=== PATIENT | male | born 1965 | race Caucasian/White ===

== ENCOUNTER 2021-02-03 18:29 | Observation (INO) ==
[2021-02-03] MEDS ORDERED: ONDANSETRON INJ 2 MG/ML 2 ML VIAL IV STA (18:48)
[2021-02-03] MEDS ORDERED: MoRPHine SULFATE 4 MG/ML 1 ML CARP\\VIAL IV STA ×2 (18:48→21:59)
--- NOTE | 2021-02-03 18:52 | Emergency Department Note ---
History of Present Illness General Chief complaint: Back Injury/Pain Stated complaint: Back Pain down R leg Time Seen by Provider: 02/03/21 18:37 Source: patient and EMS Mode of arrival: EMS Limitations: no limitations History of Present Illness This patient comes in with back pain it starts in the right lower back and radiates down his leg. He has had this for a week and got worse over the last day. It has been progressively worse he has had it several times in the past. No injury although he has been doing a lot of working and moving and thinks he could have aggravated. He feels tingling in the right leg today but no numbness is mostly just pain the pain is worse with moving. No change in bowel or bladder function. No fever or chills. He said the Covid vaccine x2 with Materna. No chest pain or shortness of breath. No abdominal pain. Home Medications Medication Instructions Recorded Confirmed Type triamcinolone acetonide 0.1 % 1 applic TOPICAL UD PRN 01/24/18 02/03/21 History topical cream azelastine 137 mcg (0.1 %) nasal 2 spray INTNAS BID #30 ml 11/07/20 02/03/21 Rx spray aerosol buspirone 5 mg tablet 5 mg PO BID PRN #60 tab 01/24/21 02/03/21 Rx diclofenac sodium 75 mg 75 mg PO BID #60 tab 02/03/21 02/03/21 Rx tablet,delayed release naproxen sodium 220 mg tablet 440 mg PO BID PRN 02/03/21 02/03/21 History (Aleve) oxycodone 5 mg capsule 5 mg PO Q6H PRN #20 cap 02/03/21 Rx prednisone 50 mg tablet 50 mg PO DAILY 4 Days #4 tab 02/03/21 Rx Allergies Allergy/AdvReac Type Severity Reaction Status Date / Time No Known Drug Allergies Allergy NKDA Verified 02/03/21 20:22 Past Med/Surg History Medical History Foreign body of right eye Surgical History H/O colonoscopy (02/20/19) hyperplastic polyp - repeat in 10 years , Dr. Hansen History of knee surgery Family History Aunt Breast cancer Diabetes Grandfather Leukemia Grandfather Alzheimer disease Denies family history of Ovarian cancer Prostate cancer Clotting disorder Myocardial infarction Colorectal cancer Social History Smoking Status: Never smoker Tobacco Type: Smokeless Tobacco (Dip or Chew) Age Started Using Tobacco: 17; Age Quit Using Tobacco: 29; Number of Years Since Quit: 13; Second Hand Exposure: Yes (Rarely); Hx Alcohol Use: No Hx Substance Use: No Communication Ability: Effective Visual Impairment: No Limitations Hearing Ability: Normal marital status: Current Living Situation: Family Current Living Situation Comment: lives with son current occupational status: employed 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 [employer] Feels Safe at Home: Yes Childhood Exposure to Second-Hand Smoke: No caffeine: Yes (1 cup of coffee a day) Dental Care, Regularly: Yes Physical Activity Frequency: Does not Exercise Seatbelt Use: always Sunscreen Use: No Assistive Devices: Glasses Review of Systems A total of 10 systems reviewed and were otherwise negative Physical Exam Vital Signs Vital Signs - 24 hr 02/03/21 18:56 02/03/21 21:26 Temperature 36.5 C Temperature Source Oral Pulse Rate 62 Pulse Rate [Apical] 55 L Pulse Rhythm Regular Pulse Strength Normal Respiratory Rate 20 16 Respiratory Effort / Characteristics Non-Labored Spontaneous Respiratory Depth Normal Respiratory Pattern Regular Blood Pressure 125/100 Blood Pressure Mean 108 Blood Pressure Position Lying Pulse Oximetry 98 96 Oxygen Delivery Method Room Air Sepsis Recent Fever Within 48 Hours No Sepsis New/Unexplained Change in Mental Status No Sepsis Action Taken by Nursing No Action Required General: Well developed well nourished middle-age male who is laying prone in the bed complaining of pain in his right butt cheek going down the leg it is worse with movement. He is in no acute distress, breathing comfortably on room air. Normal speech HEENT: Normal cephalic atraumatic. Pupils are equal round and reactive to light. Extraocular movements are intact. Oropharynx is pink with moist mucous membranes. No swelling of the mouth lips or tongue. Neck: Supple with a midline trachea. No meningeal signs or stiffness, no JVD or bruits. No Stridor. Chest: Clear to auscultation bilaterally. No wheezes or rhonchi. No increased work of breathing. Heart: Regular rate and rhythm without murmurs or gallops. Abdomen: Soft nontender, nondistended without rebound guarding or rigidity. Extremities: No cyanosis clubbing or edema. No calf tenderness or assymetry Spine/Back. Non tender to palpation. He is tender in the right buttocks towards the SI joint. It hurts when I raise his leg Skin: Good turgor without rashes. Neurologic exam: Cranial nerves two through 12 are intact. Motor and sensation are intact and symmetrical throughout. Course Administered Medications Discontinued Medications Hydromorphone HCl (Hydromorphone Inj 1 Mg/Ml Syringe) 1 mg IV NOW STA Stop: 02/03/21 22:55 Last Admin: 02/03/21 23:03 Dose: 1 mg Documented by: [id number] Ketorolac Tromethamine (Ketorolac Tromethamine 15 Mg/Ml Vial) 10 mg IV NOW ONE Stop: 02/03/21 20:26 Last Admin: 02/03/21 20:31 Dose: 10 mg Documented by: [id number] Ketorolac Tromethamine (Ketorolac Tromethamine 15 Mg/Ml Vial) 10 mg IV NOW ONE Stop: 02/03/21 22:55 Last Admin: 02/03/21 23:03 Dose: 10 mg Documented by: [id number] Methylprednisolone (Methylprednisolone 125 Mg/2 Ml Vial) 125 mg IV NOW STA Stop: 02/03/21 20:26 Last Admin: 02/03/21 20:31 Dose: 125 mg Documented by: [id number] Morphine Sulfate (Morphine Sulfate 4 Mg/Ml 1 Ml Carp\Vial) 4 mg IV NOW STA Stop: 02/03/21 18:49 Last Admin: 02/03/21 19:06 Dose: 4 mg Documented by: [id number] Morphine Sulfate (Morphine Sulfate 4 Mg/Ml 1 Ml Carp\Vial) 4 mg IV NOW STA Stop: 02/03/21 22:00 Last Admin: 02/03/21 22:03 Dose: 4 mg Documented by: [id number] Ondansetron HCl (Ondansetron Inj 2 Mg/Ml 2 Ml Vial) 4 mg IV NOW STA Stop: 02/03/21 18:49 Last Admin: 02/03/21 19:06 Dose: 4 mg Documented by: [id number] Medical Decision Making Differential Diagnosis Sciatica, musculoskeletal, trauma, fracture, infection Medical Records Attestation: I reviewed the patient's medical records. Home Medications Current Medication List: was personally reviewed by me Laboratory Data Attestation: I reviewed the patient's lab results. Result diagrams: 02/03/21 19:16 02/03/21 19:16 Lab Results 02/03/21 02/03/21 02/03/21 Range/Units 19:16 19:16 23:30 WBC 9.03 (4.8-10.8) K/uL RBC 4.91 (4.7-6.1) M/uL Hgb 14.8 (14.0-18.0) g/dL Hct 42.7 (42-52) % MCV 87.0 (80-100) fL MCH 30.1 (25-34) pg MCHC 34.7 (32-36) g/dL RDW Std Deviation 41.4 (36.4-46.3) fL RDW Coeff of Jennifer 13.0 (11.5-14.5) % Plt Count 219 (130-400) K/uL MPV 10.0 (7.4-10.4) fL Immature Gran % (Auto) 0.1 % Neut % (Auto) 78.5 % Lymph % (Auto) 11.7 % [place] % (Auto) 8.5 % Eos % (Auto) 1.0 % Baso % (Auto) 0.2 % Neut # (Auto) 7.08 H (1.4-6.5) K/uL Lymph # (Auto) 1.06 L (1.2-3.4) K/uL [place] # (Auto) 0.77 H (0.11-0.59) K/uL Eos # (Auto) 0.09 (0-0.5) K/uL Baso # (Auto) 0.02 (0-0.2) K/uL Immature Gran # (Auto) 0.01 (0.00-0.02) K/uL Sodium 140 (136-145) mmol/L Potassium 3.9 (3.5-5.1) mmol/L Chloride 109 H (98-107) mmol/L Carbon Dioxide 28 (21-32) mmol/L Anion Gap 4.0 (3-11) BUN 16 (7-18) mg/dl Creatinine 0.86 (0.6-1.4) mg/dl Est Cr Clr Drug Dosing 133.1 ml/min Est GFR ( Amer) 113.9 ml/min Est GFR (Non-Af Amer) 98.3 ml/min BUN/Creatinine Ratio 18.7 (10-20) Glucose 108 H (70-99) mg/dl Calcium 8.3 L (8.5-10.1) mg/dl Total Bilirubin 0.9 (0.2-1) mg/dl AST 31 (15-37) U/L ALT 29 (12-78) U/L Alkaline Phosphatase 70 (45-117) U/L Total Protein 7.2 (6.4-8.2) gm/dl Albumin 3.2 L (3.4-5.0) gm/dl Globulin 4.0 (2.5-4.0) gm/dl Albumin/Globulin Ratio 0.8 L (0.9-2) COVID-19 Eval Order Covid19 at [facility] SARS-CoV-2 (PCR) (Negative) 02/03/21 Range/Units 23:30 WBC (4.8-10.8) K/uL RBC (4.7-6.1) M/uL Hgb (14.0-18.0) g/dL Hct (42-52) % MCV (80-100) fL MCH (25-34) pg MCHC (32-36) g/dL RDW Std Deviation (36.4-46.3) fL RDW Coeff of Jennifer (11.5-14.5) % Plt Count (130-400) K/uL MPV (7.4-10.4) fL Immature Gran % (Auto) % Neut % (Auto) % Lymph % (Auto) % [place] % (Auto) % Eos % (Auto) % Baso % (Auto) % Neut # (Auto) (1.4-6.5) K/uL Lymph # (Auto) (1.2-3.4) K/uL [place] # (Auto) (0.11-0.59) K/uL Eos # (Auto) (0-0.5) K/uL Baso # (Auto) (0-0.2) K/uL Immature Gran # (Auto) (0.00-0.02) K/uL Sodium (136-145) mmol/L Potassium (3.5-5.1) mmol/L Chloride (98-107) mmol/L Carbon Dioxide (21-32) mmol/L Anion Gap (3-11) BUN (7-18) mg/dl Creatinine (0.6-1.4) mg/dl Est Cr Clr Drug Dosing ml/min Est GFR ( Amer) ml/min Est GFR (Non-Af Amer) ml/min BUN/Creatinine Ratio (10-20) Glucose (70-99) mg/dl Calcium (8.5-10.1) mg/dl Total Bilirubin (0.2-1) mg/dl AST (15-37) U/L ALT (12-78) U/L Alkaline Phosphatase (45-117) U/L Total Protein (6.4-8.2) gm/dl Albumin (3.4-5.0) gm/dl Globulin (2.5-4.0) gm/dl Albumin/Globulin Ratio (0.9-2) COVID-19 Eval Order SARS-CoV-2 (PCR) NEGATIVE (Negative) Imaging Data Attestation: I personally reviewed and interpreted this imaging study as fol lows: Radiologist's Impression: Lumbar Spine CT 02/03/21 18:48 CT lumbar spine wo con HISTORY: 55 years-old Male Back Pain acute low back pain without reported trauma COMPARISON: Chest radiograph 12/16/2020, MRI lumbar spine 04/10/2012 TECHNIQUE: Multiple axial CT images of the lumbar spine were obtained without the use of IV contrast. A dose lowering technique was used consistent with the principals of ALARA. FINDINGS: Moderate intervertebral disc space narrowing at L5-S1 with moderate spondylitic spurring and posterior disc osteophyte complex, increased in size from comparison. Mild multilevel intervertebral disc space narrowing and spondylitic spurring and severe facet arthrosis. No acute fracture or subluxation. No endplate erosions. Paravertebral and imaged intra-abdominal structures appear unremarkable. T12-L1: No central canal or neural foraminal narrowing. L1-L2: No central canal or neural foraminal narrowing. L2-L3: Small posterior annular disc bulge. Ligamentum flavum thickening with severe facet arthrosis. Mild central canal stenosis with mild right neural foraminal narrowing. The left neural foramen is patent. L3-L4: Spondylitic spurring with posterior annular disc bulge, ligamentum flavum thickening and severe facet arthrosis. Mild to moderate central canal stenosis with mild right and [id number] left neural foraminal narrowing. L4-L5: Posterior annular disc bulge with spondylitic spurring, ligamentous thickening and severe facet arthrosis. There is a least mild to moderate central canal stenosis with mild left neural foraminal narrowing. The right neuroforamen is patent. L5-S1: Posterior disc osteophyte complex with ligamentum thickening and severe facet arthrosis. There is at least mild central canal stenosis with mild to moderate right and mild left neural foraminal narrowing. IMPRESSION: 1. No acute fracture or subluxation. 2. Moderate intervertebral disc space narrowing at L5-S1 with severe multilevel facet arthrosis. 3. Multilevel central canal and neural foraminal narrowing as above. ACT 112: Negative or not required by law. The above report was generated using voice recognition software. It may contain grammatical, syntax or spelling errors. Electronically signed by: Erick Cantor M.D. 02/03/2021 8:06 PM [facility] Narrative This patient comes in as described above. He is having right SI/buttock pain rating down his leg it is consistent with sciatica. He has no neurologic deficits has nothing to suggest cauda equina. there is nothing to suggest infection, he had no significant trauma. IV access was established and he was given morphine 4 mg IV and Zofran 4 mg IV. Blood work urinalysis and a CAT scan was ordered. He has no fever white count discussed infection. His CAT scan shows no fracture if he does have some degenerative disc changes potentially. He did receive additional IV morphine and IV Toradol. He was given 125 Solu- Medrol IV as well. He continued have pain mostly with movement and was laying face down and when he tried to stand up he said it would hurt too much. I did give him Dilaudid 1 mg IV. I do think he needs to be admitted/observed given his ongoing pain although now he seems to be doing quite a bit better. I did order MRI. Dr. Davis is also seen in the ER for these measures. Covid test has been ordered as well and was negative. Impression & Plan Intractable low back pain, Sciatica, Lumbar degenerative disc disease, Lab test negative for COVID-19 virus Discharge Plan Visit Data Chief Complaint: Back Injury/Pain Stated Complaint: Back Pain down R leg ED Provider: Abel Lynne Discharge Problem: Intractable low back pain, Sciatica, Lumbar degenerative disc disease, Lab test negative for COVID-19 virus Discharge Instructions Activity Restrictions/Additional Instructions: Rest. Ice intermittently Be careful when getting up and down Use prednisone 50 mg a day for the next 4 dayssteroid Use Aleve or ibuprofen in the [id number] dosages For more severe pain may use OxyIR 5 mg, 1 pill every 4 hours as needed. OxyIR is a narcotic and may make you drowsy and do not take before drinking, driving, working and be careful getting up and down. Return if: Increasing pain, fever or chills, numbness or weakness, change in bowel bladder function, any new problems or concerns Forms Stand Alone Forms: My [facility] [employer] ([place]) Prescriptions Prescriptions: New oxycodone 5 mg capsule 5 mg PO Q6H PRN (Reason: pain) Qty: 20 RF: 0 prednisone 50 mg tablet 50 mg PO DAILY 4 Days Qty: 4 RF: 0 No Action diclofenac sodium 75 mg tablet,delayed release (DR/EC) 75 mg PO BID Qty: 60 RF: 0 buspirone 5 mg tablet 5 mg PO BID PRN (Reason: anxiety) Qty: 60 RF: 5 azelastine 137 mcg (0.1 %) aerosol,spray 2 spray INTNAS BID Qty: 30 RF: 11 triamcinolone acetonide 0.1 % cream 1 applic Topical UD PRN (Reason: Rash) RF: 0 naproxen sodium [Aleve] 220 mg Tablet 440 mg PO BID PRN (Reason: Pain) RF: 0 Referrals Referrals: Albino Gonzáles III, MD [Primary Care Provider] - Discharge Problem: Sciatica Qualifiers: Laterality: right Qualified Code(s): M54.31 - Sciatica, right side
[2021-02-03 19:23] LABS: Basophils # (auto) 0.02 K/uL (0-0.2); Basophils % (auto) 0.2 %; Eosinophils # (auto) 0.09 K/uL (0-0.5); Hematocrit (blood only) 42.7 % (42-52); Hemoglobin 14.8 g/dL (14.0-18.0); Immature Granulocytes # (auto) 0.01 K/uL (0.00-0.02); Immature Granulocytes % (auto) 0.1 %; Lymphocytes # (auto) 1.06 K/uL (1.2-3.4); Lymphocytes % (auto) 11.7 %; Mean Corpuscular Hemoglobin 30.1 pg (25-34); Mean Corpuscular Hgb Conc 34.7 g/dL (32-36); Monocytes # (auto) 0.77 K/uL (0.11-0.59); Monocytes % (auto) 8.5 %; Neutrophils # (auto) 7.08 K/uL (1.4-6.5); Neutrophils % (auto) 78.5 %; Platelet Count 219 K/uL (130-400); RDW Standard Deviation 41.4 fL (36.4-46.3); Red Blood Count 4.91 M/uL (4.7-6.1); White Blood Count 9.03 K/uL (4.8-10.8)
[2021-02-03 19:40] LABS: Albumin Level 3.2 gm/dl (3.4-5.0); BUN Creatinine Ratio 18.7 (10-20); Calcium 8.3 mg/dl (8.5-10.1); Creatinine Clr Calc Pharmacy 133.1 ml/min; Est GFR (African American) 113.9 ml/min; Est GFR (Non-African American) 98.3 ml/min; Potassium 3.9 mmol/L (3.5-5.1)
[2021-02-03 19:43] LABS: Albumin Globulin Ratio 0.8 (0.9-2); Bilirubin,Total 0.9 mg/dl (0.2-1); Total Protein 7.2 gm/dl (6.4-8.2)
--- NOTE | 2021-02-03 20:07 | CT Scan Report ---
CT lumbar spine wo con HISTORY: 55 years-old Male Back Pain acute low back pain without reported trauma COMPARISON: Chest radiograph 12/16/2020, MRI lumbar spine 04/10/2012 TECHNIQUE: Multiple axial CT images of the lumbar spine were obtained without the use of IV contrast. A dose lowering technique was used consistent with the principals of CECILIO. FINDINGS: Moderate intervertebral disc space narrowing at L5-S1 with moderate spondylitic spurring and posterio r disc osteophyte complex, increased in size from comparison. Mild multilevel intervertebral disc spa ce narrowing and spondylitic spurring and severe facet arthrosis. No acute fracture or subluxation. N o endplate erosions. Paravertebral and imaged intra-abdominal structures appear unremarkable. T12-L1: No central canal or neural foraminal narrowing. L1-L2: No central canal or neural foraminal narrowing. L2-L3: Small posterior annular disc bulge. Ligamentum flavum thickening with severe facet arthrosis. Mild central canal stenosis with mild right neural foraminal narrowing. The left neural foramen is pa tent. L3-L4: Spondylitic spurring with posterior annular disc bulge, ligamentum flavum thickening and sever e facet arthrosis. Mild to moderate central canal stenosis with mild right and [id number] left neural foraminal narrowing. L4-L5: Posterior annular disc bulge with spondylitic spurring, ligamentous thickening and severe face t arthrosis. There is a least mild to moderate central canal stenosis with mild left neural foraminal narrowing. The right neuroforamen is patent. L5-S1: Posterior disc osteophyte complex with ligamentum thickening and severe facet arthrosis. There is at least mild central canal stenosis with mild to moderate right and mild left neural foraminal n arrowing. IMPRESSION: 1. No acute fracture or subluxation. 2. Moderate intervertebral disc space narrowing at L5-S1 with severe multilevel facet arthrosis. 3. Multilevel central canal and neural foraminal narrowing as above. ACT 112: Negative or not required by law. The above report was generated using voice recognition software. It may contain grammatical, syntax o r spelling errors. Electronically signed by: Erick Cantor M.D. 02/03/2021 8:06 PM
[2021-02-03] MEDS ORDERED: methylPREDNISolone 125 MG/2 ML VIAL IV STA (20:25)
[2021-02-03] MEDS ORDERED: KETOROLAC TROMETHAMINE 15 MG/ML VIAL IV ONE ×2 (20:25→22:54)
[2021-02-03] MEDS ORDERED: oxyCODONE IR HOME PACK PO ONE (22:31)
[2021-02-03] MEDS ORDERED: HYDROmorphone INJ 1 MG/ML SYRINGE IV STA (22:54)
--- NOTE | 2021-02-04 00:49 | History & Physical Report ---
Date of Service February 04, 2021 Assessment & Plan (1) Intractable low back pain: Plan: Intractable lumbar back pain/right lower extremity radiculopathy- Dexamethasone 4 mg IV every 8 hours [place] 5/325, 1 p.o. every 4 hours as needed moderate pain [place] 5/325, 2 p.o. every 4 hours as needed severe pain Dilaudid 0.5 mg IV every 3 hours as needed moderate pain Dilaudid 1 mg IV every 3 hours as needed severe pain Zofran 4 mg IV every 6 hours as needed MRI LS without contrast ordered and pending for the morning (2) Lumbar back pain with radiculopathy affecting right lower extremity: Plan: See above (3) Lumbar degenerative disc disease: Plan: See above (4) Generalized anxiety disorder: Plan: Continue buspirone History of Present Illness Chief Complaint: The patient presents to the emergency department with low back pain and right lower extremity radicular pain down to his foot, worsening over the past week, to the point today of making it difficult to ambulate Primary Care Provider: Albino Gonzáles MD The patient is a 55-year-old male with a past medical history including generalized anxiety disorder dyshidrotic eczema, hypercholesterolemia, lumbar disc herniation with radiculopathy and chronic sinusitis, who presents with symptoms as noted above. He has had several episodes of low back pain in the past, but this is lasted longer, has been more severe, and is accompanied by right lower extremity radiculopathy. The patient did finally get relief in the emergency department after being given morphine sulfate 4 mg IV, then Zofran 4 mg IV, then methylprednisolone-125 mg IV, Toradol 10 mg IV, morphine sulfate 4 mg IV, hydromorphone 1 mg IV and Toradol [address] scan of lumbar spine: No acute fracture or subluxation. Moderate intervertebral disc space narrowing at L5-S1 with severe multilevel facet arthrosis. Multilevel central canal and neuroforaminal Narrowing. The patient is now comfortable enough that an MRI of lumbar spine without contrast is being ordered. He will need to be needed for pain management and further diagnosis Allergies Allergy/AdvReac Type Severity Reaction Status Date / Time No Known Drug Allergies Allergy NKDA Verified 02/03/21 20:22 Home Medications Medication Instructions Recorded Confirmed Type triamcinolone acetonide 0.1 % 1 applic TOPICAL UD PRN 01/24/18 02/03/21 History topical cream azelastine 137 mcg (0.1 %) nasal 2 spray INTNAS BID #30 ml 11/07/20 02/03/21 Rx spray aerosol buspirone 5 mg tablet 5 mg PO BID PRN #60 tab 01/24/21 02/03/21 Rx diclofenac sodium 75 mg 75 mg PO BID #60 tab 02/03/21 02/03/21 Rx tablet,delayed release naproxen sodium 220 mg tablet 440 mg PO BID PRN 02/03/21 02/03/21 History (Aleve) oxycodone 5 mg capsule 5 mg PO Q6H PRN #20 cap 02/03/21 Rx prednisone 50 mg tablet 50 mg PO DAILY 4 Days #4 tab 02/03/21 Rx Past Med/Surg History Medical History Foreign body of right eye Surgical History H/O colonoscopy (02/20/19) hyperplastic polyp - repeat in 10 years , Dr. Hansen History of knee surgery Family History Aunt Breast cancer Diabetes Grandfather Leukemia Grandfather Alzheimer disease Denies family history of Ovarian cancer Prostate cancer Clotting disorder Myocardial infarction Colorectal cancer Social History Smoking Status: Never smoker Tobacco Type: Smokeless Tobacco (Dip or Chew) Age Started Using Tobacco: 17; Age Quit Using Tobacco: 29; Number of Years Since Quit: 13; Second Hand Exposure: Yes (Rarely); Hx Alcohol Use: No Hx Substance Use: No Communication Ability: Effective Visual Impairment: No Limitations Hearing Ability: Normal marital status: Current Living Situation: Family Current Living Situation Comment: lives with son current occupational status: employed 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 [employer] Feels Safe at Home: Yes Childhood Exposure to Second-Hand Smoke: No caffeine: Yes (1 cup of coffee a day) Dental Care, Regularly: Yes Physical Activity Frequency: Does not Exercise Seatbelt Use: always Sunscreen Use: No Assistive Devices: Glasses Review of Systems Review of Systems: The patient denies chest pain, palpitations, shortness of breath, dyspnea on exertion, cough, lower extremity swelling, sore throat, fevers, chills, sweats, weight change, fatigue, nausea, vomiting, diarrhea , constipation, abdominal pain, pelvic pain, blood in urine or stool, dysuria, urinary frequency or urgency, lightheadedness, dizziness, headache, memory loss, loss of consciousness, rash, abnormal bruising or bleeding, focal or generalized weakness, numbness or tingling in arms or left leg, generalized arthralgias or myalgias, neck pain, or night sweats. The review of systems is otherwise negative other than for that already noted above, and at least 10 systems have been reviewed. Physical Exam Physical Exam: The patient is awake, alert and oriented 3, well developed and well nourished, normocephalic and atraumatic, lying in bed and in no acute distress after administration of the above medications HEENT--PERRL, EOMI, mucous membranes and oropharynx normal. Neck--supple. No JVD. No bruits. Thyroid normal, trachea midline, no adenopathy. Heart--normal S1 and S2. No murmurs, rubs or gallops. Lungs--clear bilaterally, no respiratory distress, no accessory muscle use. Abdomen--normal bowel sounds and soft. Nontender. Nondistended. Morbidly obese Extremities--no cyanosis or clubbing. No edema. Dermatologic--normal skin turgor, normal color, no abnormal lymph nodes, no rash. Neurologic--cranial nerves II through XII grossly intact. Rheumatologic--limited exam due to initial presentation in severe pain Psychiatric--normal affect. Results & Data Results & Data ([facility]) Vital Signs (Past 12 Hours) Vital Signs Temp Pulse Pulse Resp BP Pulse Ox 02/03/21 21:26 55 L 16 96 02/03/21 18:56 97.7 F 62 20 125/100 98 Laboratory Results Laboratory Results WBC 9.03 K/uL (4.8-10.8) 02/03/21 19:16 RBC 4.91 M/uL (4.7-6.1) 02/03/21 19:16 Hgb 14.8 g/dL (14.0-18.0) 02/03/21 19:16 Hct 42.7 % (42-52) 02/03/21 19:16 MCV 87.0 fL (80-100) 02/03/21 19:16 MCH 30.1 pg (25-34) 02/03/21 19:16 MCHC 34.7 g/dL (32-36) 02/03/21 19:16 RDW Std Deviation 41.4 fL (36.4-46.3) 02/03/21 19:16 RDW Coeff of Jennifer 13.0 % (11.5-14.5) 02/03/21 19:16 Plt Count 219 K/uL (130-400) 02/03/21 19:16 MPV 10.0 fL (7.4-10.4) 02/03/21 19:16 Immature Gran % (Auto) 0.1 % 02/03/21 19:16 Neut % (Auto) 78.5 % 02/03/21 19:16 Lymph % (Auto) 11.7 % 02/03/21 19:16 [place] % (Auto) 8.5 % 02/03/21 19:16 Eos % (Auto) 1.0 % 02/03/21 19:16 Baso % (Auto) 0.2 % 02/03/21 19:16 Neut # (Auto) 7.08 K/uL (1.4-6.5) H 02/03/21 19:16 Lymph # (Auto) 1.06 K/uL (1.2-3.4) L 02/03/21 19:16 [place] # (Auto) 0.77 K/uL (0.11-0.59) H 02/03/21 19:16 Eos # (Auto) 0.09 K/uL (0-0.5) 02/03/21 19:16 Baso # (Auto) 0.02 K/uL (0-0.2) 02/03/21 19:16 Immature Gran # (Auto) 0.01 K/uL (0.00-0.02) 02/03/21 19:16 Sodium 140 mmol/L (136-145) 02/03/21 19:16 Potassium 3.9 mmol/L (3.5-5.1) 02/03/21 19:16 Chloride 109 mmol/L (98-107) H 02/03/21 19:16 Carbon Dioxide 28 mmol/L (21-32) 02/03/21 19:16 Anion Gap 4.0 (3-11) 02/03/21 19:16 BUN 16 mg/dl (7-18) 02/03/21 19:16 Creatinine 0.86 mg/dl (0.6-1.4) 02/03/21 19:16 Est Cr Clr Drug Dosing 133.1 ml/min 02/03/21 19:16 Est GFR ( Amer) 113.9 ml/min 02/03/21 19:16 Est GFR (Non-Af Amer) 98.3 ml/min 02/03/21 19:16 BUN/Creatinine Ratio 18.7 (10-20) 02/03/21 19:16 Glucose 108 mg/dl (70-99) H 02/03/21 19:16 Calcium 8.3 mg/dl (8.5-10.1) L 02/03/21 19:16 Total Bilirubin 0.9 mg/dl (0.2-1) 02/03/21 19:16 AST 31 U/L (15-37) 02/03/21 19:16 ALT 29 U/L (12-78) 02/03/21 19:16 Alkaline Phosphatase 70 U/L (45-117) 02/03/21 19:16 Total Protein 7.2 gm/dl (6.4-8.2) 02/03/21 19:16 Albumin 3.2 gm/dl (3.4-5.0) L 02/03/21 19:16 Globulin 4.0 gm/dl (2.5-4.0) 02/03/21 19:16 Albumin/Globulin Ratio 0.8 (0.9-2) L 02/03/21 19:16 COVID-19 Eval Order Covid19 at [facility] 02/03/21 23:30 SARS-CoV-2 (PCR) NEGATIVE (Negative) 02/03/21 23:[address] 02/03/21 18:48 CT lumbar spine wo con HISTORY: 55 years-old Male Back Pain acute low back pain without reported trauma COMPARISON: Chest radiograph 12/16/2020, MRI lumbar spine 04/10/2012 TECHNIQUE: Multiple axial CT images of the lumbar spine were obtained without th e use of IV contrast. A dose lowering technique was used consistent with the principals of CECILIO. FINDINGS: Moderate intervertebral disc space narrowing at L5-S1 with moderate spondylitic spurring and posterior disc osteophyte complex, increased in size from comparison. Mild multilevel intervertebral disc space narrowing and spondylitic spurring and severe facet arthrosis. No acute fracture or subluxation. No endplate erosions. Paravertebral and imaged intra-abdominal structures appear unremarkable. T12-L1: No central canal or neural foraminal narrowing. L1-L2: No central canal or neural foraminal narrowing. L2-L3: Small posterior annular disc bulge. Ligamentum flavum thickening with severe facet arthrosis. Mild central canal stenosis with mild right neural foraminal narrowing. The left neural foramen is patent. L3-L4: Spondylitic spurring with posterior annular disc bulge, ligamentum flavum thickening and severe facet arthrosis. Mild to moderate central canal stenosis with mild right and [id number] left neural foraminal narrowing. L4-L5: Posterior annular disc bulge with spondylitic spurring, ligamentous thickening and severe facet arthrosis. There is a least mild to moderate central canal stenosis with mild left neural foraminal narrowing. The right neuroforamen is patent. L5-S1: Posterior disc osteophyte complex with ligamentum thickening and severe facet arthrosis. There is at least mild central canal stenosis with mild to moderate right and mild left neural foraminal narrowing. IMPRESSION: 1. No acute fracture or subluxation. 2. Moderate intervertebral disc space narrowing at L5-S1 with severe multilevel facet arthrosis. 3. Multilevel central canal and neural foraminal narrowing as above. ACT 112: Negative or not required by law. The above report was generated using voice recognition software. It may contain grammatical, syntax or spelling errors. Electronically signed by: Erick Cantor M.D. 02/03/2021 8:06 PM Code Status & VTE Plan Code Status Full code PG Care Time/CCT Total # of Minutes Spent Total Time Spent with Patient: Total time spent is greater than 50% in coordination of care (as documented) at patient's floor/unit and/or counseling patient: Coding Level of Care Code INT OBSERVATION CARE 70M LVL 3 Diagnoses Intractable low back pain M54.5 Lumbar back pain with radiculopathy affecting right lower extremity M54.16 Lumbar degenerative disc disease M51.36 Generalized anxiety disorder F41.1
[2021-02-04] MEDS ORDERED: ACETAMINOPHEN 325 MG TAB PO PRN (03:37)
[2021-02-04] MEDS ORDERED: HYDROmorphone INJ 0.5 MG/0.5 ML SYR IV PRN (03:37)
[2021-02-04] MEDS ORDERED: HYDROCODONE/ACETAMOPHEN 5/325MG TAB PO PRN (03:37)
[2021-02-04] MEDS ORDERED: busPIRone 5 MG TAB PO PRN (03:37)
[2021-02-04] MEDS ORDERED: ONDANSETRON INJ 2 MG/ML 2 ML VIAL IV PRN (03:37)
[2021-02-04] MEDS ORDERED: HYDROmorphone INJ 1 MG/ML SYRINGE IV PRN (03:37)
[2021-02-04] MEDS: HYDROCODONE/ACETAMOPHEN 5/325MG TAB PO PRN ×2 (04:43→13:20)
[2021-02-04] MEDS: dexAMETHasone 4 MG in SYRINGE 0 ML IV SCH ×2 (04:44→14:19)
[2021-02-04] MEDS: ENOXAPARIN INJ 40 MG/0.4 ML SYR SQ SCH ×2 (05:30→20:12)
--- NOTE | 2021-02-04 10:17 | Magnetic Resonance Report ---
MR lumbar spine wo con INDICATION: MN ^back pain radiating down leg TECHNIQUE: 3 plane localizer images, sagittal T2, sagittal T1, sagittal STIR, axial T1, axial T2 susan g with postcontrast axial T1 and sagittal T1 fat-saturated sequences were obtained of the lumbar spin e, before and after intravenous administration of 12 mL of MultiHance. Comparison: None available at the time of this dictation. FINDINGS: The conus medullaris terminates at the level of T12-L1 there is grade 1 retrolisthesis of L5-S1. Mini mal degenerative changes are most prominent in L4-L5 and L5-S1. L1-L2: No neuroforaminal or canal stenosis. L2-L3: No neuroforaminal or canal stenosis. L3-L4: Small posterior disc bulge with resultant mild canal stenosis. Neuroforamina are patent. L4-L5: Moderate posterior disc bulge with moderate canal stenosis. Neuroforamina are patent. L5-S1: Significant canal stenosis due to posterior disc bulge and retrolisthesis. Neuroforamina are p atent. The spinal ligaments are intact, without evidence of disruption or abnormal signal intensity. The spi nal cord is normal in signal intensity and there is no evidence of cord contusion. There is no eviden ce of an extradural, intradural, extramedullary or intramedullary lesion. Visualized soft tissues are normal. IMPRESSION: No evidence of high-grade neuroforaminal stenosis. There is mild to moderate narrowing of the spinal canal from L3 L5 and severe canal stenosis at L5-S1. ACT 112: Negative or not required by law. Electronically signed by: Stanley Mixon M.D. 02/04/2021 10:15 AM
--- NOTE | 2021-02-04 12:08 | Hospitalist Progress Note ---
Date of Service February 04, 2021 Assessment & Plan (1) Lumbar back pain with radiculopathy affecting right lower extremity: Plan: - Sciatica vs Piriformis syndrome/spasm. - MRI of spine showed mild to moderate narrowing of the spinal canal from L3 L5 and severe canal stenosis at L5-S1. Patient without neurological defects along L5/S1 dermatomes of legs and feet. More likely pain 2/2 musculoskeletal rather than neurologic. Discussed with patient our thoughts on the musculoskeletal aspect of his pain, patient was understanding. - Stopped dexamethasone and started toradol q6 hrs and Voltaren gel qid to affected area for inflammation to the area, valium 5mg before bedtime, and 4g magnesium for muscle relaxation. - Will continue to monitor and see how patient is feeling in the morning and if he will be able to bear weight on his right leg. Admission and Anticipated Discharge Date Admission Date: February 04, 2021 Supervising Physician Co-Signing Physician Notes I personally examined the patient and verified all danielle points of history and exam, discussed case, and agree with decision making with Dr Flores. Ongoing back pain, right buttock and back of thigh mostly, occasionally whenever he moves in certain directions or bears weight it will shoot the whole way down to his foot, but seems to be diffuse. He notes several years back he had back pain that created more of a paresthesia on the side of his calf, this seems different, more positional. There is no real persistence to symptomsand some times he cannot find a comfortable position. Vitals noted, in general he is awake and alert pleasant no distress. HEENT normocephalic atraumatic mucous membranes moist. Neuro shows equal sensation b ilateral lower extremities and a negative straight leg raise (he notes pain, but it is at the back of his knee not at all in his back). Osteopathic/musculoskeletalright-sided piriformis/pelvic/buttock musculature high tone, tender, decreased range of motionLASimproved in tissue texture some, patient tolerated well. Low back painwhile he does have spinal stenosis/disc disease, currently his p resentation seems predominantly that of a biomechanical strain centered on pelvic stabilizer muscles i.e. piriformisToradol, magnesium, Valium, topical diclofenac, PT, OMT. Pelvic somatic dysfunctionOMT as above. DVT proph - lovenox Otherwise as above. Subjective Patient is a 55 year old male past medical history of generalized anxiety disorder, impaired fasting glucose, and hypercholesterolemia admitted for intractable right lower back pain. I saw the patient at bedside this morning where he was laid on his left side and trying to find the most comfortable position. Patient told me the pain started as constant at the right sacral/buttocks area with shooting pain down the leg when he came into the ED and now it has progressed to constant pain from the right buttock to the right knee. Patient denied any trouble with urination or controlling urine output. He said he has not had a bowel movement since coming to the hospital but denies loss of control of bowels and that he was constipated last time he had this pain. He last had an episode of pain similar to this around 7 years ago where he was bound to his couch for 3 days before calling EMS. EMS gave him some steroid injections and his pain resolved. This pain has been ongoing for the past week, coming about 2 days after he did some lawn work and lifted chairs around. Review of Systems Constitutional: Denies any fever or chills. Musculoskeletal: as per Subjective / HPI Neurologic: + numbness (right leg decreased sensation at times) Physical Exam Constitutional: WD/WN, vitals as above well developed and well nourished Patient laying on left side and constantly trying to find position with less pain. Eyes: PERRL, conjunctivae normal, anicteric sclerae Respiratory: normal respiratory effort, lungs clear to auscultation Cardiovascular: RRR, no murmur, no edema Gastrointestinal (Abdomen): normal bowel sounds, soft, nontender, no hepatosplenomegaly Musculoskeletal: Active and passive range of motion in tact right hip, although painful for patient in all planes past 30-40 degrees. A few tender points located along sacrum/sacro-iliac joint on the right. Putting patient's right leg in flexed position while slightly abducted to shorten piriformis resulted in slightly less pain. Neurologic: Sensation to touch and strength in tact bilaterally. Results & Data Results & Data ([facility]) Vital Signs (Past 12 Hours) Vital Signs Temp Pulse Pulse Resp BP Pulse Ox 02/04/21 07:04 36.4 C L 70 16 101/61 97 02/04/21 03:20 36.5 C 63 16 123/74 96 02/04/21 02:33 60 18 95/69 L 96 Resident Activity Tracking Resident Involvement: Resident Care Provided Care Provided: Adult [facility] Medicine
[2021-02-04] MEDS ORDERED: diazePAM 5 MG TABLET PO PRN (17:32)
[2021-02-04] MEDS ORDERED: KETOROLAC TROMETHAMINE 15 MG/ML VIAL IM PRN (18:09)
[2021-02-04] MEDS ORDERED: KETOROLAC TROMETHAMINE 15 MG/ML VIAL IV PRN (18:35)
--- NOTE | 2021-02-04 19:34 | Billing Data ---
Date of Service February 04, 2021 Coding Level of Care Code 94725 Subseq Obs Care Lvl 3
--- NOTE | 2021-02-04 19:34 | Hospitalist Progress Note ---
Date of Service February 04, 2021 Assessment & Plan Admission and Anticipated Discharge Date Admission Date: February 04, 2021 Results & Data Results & Data ([facility]) Vital Signs (Past 12 Hours) Vital Signs Temp Pulse Resp BP Pulse Ox 02/04/21 15:22 97.7 F 70 16 107/61 93 PG Care Time/CCT Total # of Minutes Spent Total Time Spent with Patient: Total time spent is greater than 50% in coordination of care (as documented) at patient's floor/unit and/or counseling patient: Coding Level of Care Code None CPT Codes Musculoskeletal - Musculoskeletal: 7[address] 1-2 Body regions ([id number])
[2021-02-04] MEDS: MAGNESIUM SULFATE / D5W 1 GM/100 ML BAG IV SCH ×2 (19:59→21:54)
[2021-02-04] MEDS: DICLOFENAC SOD 1% GEL 100 GM TUBE EXT SCH (20:19)
[2021-02-04 22:29] LABS: Appearance Urine Clear (Clear); Bilirubin Urine Negative (Negative); Blood Urine Negative (Negative); Color Urine Yellow; Glucose Urine UA Negative (Negative); Ketones Urine Trace (Negative); Leukocyte Esterase Urine Negative (Negative); Nitrite Urine Negative (Negative); Protein Urine Negative (Negative); Specific Gravity Urine 1.024 (1.000-1.030); Urobilinogen Urine Negative (Negative); pH Urine 6.5 (4.5-7.5)
[2021-02-05] MEDS: LIDOCAINE 5% 1 PATCH TD SCH ×2 (01:01→09:29)
[2021-02-05] MEDS: ACETAMINOPHEN 500 MG TAB PO SCH ×4 (01:02→22:38)
[2021-02-05] MEDS: MAGNESIUM SULFATE / D5W 1 GM/100 ML BAG IV SCH ×2 (02:11)
--- NOTE | 2021-02-05 07:34 | Hospitalist Progress Note ---
Date of Service February 05, 2021 Assessment & Plan (1) Piriformis syndrome of left side: Plan: - Patient with much improvement from when he first came to the ED. Said he has improvement with walking and was able to walk to bathroom and keep two legged stance while micturating. - Patient seen by PT who helped him with piriformis stretches and exercises. PT recommended continuing outpatient PT for patient since he is able to stand on his leg without intractable pain at this point but still with some pain. - Explained to patient the nature of piriformis syndrome/spasm and the benefit of following up outpatient with Dr. Wyman for OMT treatments. Explained to the patient this can happen at random times and may recur again so it would be beneficial to keep doing piriformis stretches and exercises. - Patient still with some pain and numbness at times in left leg, feels he is not yet back to walking comfortably but will probably be comfortable going home tomorrow morning or noon. Will reassess patient tomorrow and d/c if patient is same or better. Will d/c patient with 3 days of Valium 5mg, Voltaren gel qid, and recommendation of ibuprofen 600-800mg 3x day, outpatient PT, and OMT follow up. Explained plan to patient and patient is aware and understanding. DVT proph - lovenox Admission and Anticipated Discharge Date Admission Date: February 04, 2021 Supervising Physician Co-Signing Physician Notes I personally examined the patient and verified all danielle points of history and exam, discussed case, and agree with decision making with Dr Flores. Feeling better but still pain with walking. Has not walked a lot. Later rechecked by resident physician, patient noted that he just does not quite feel like his pain is well enough controlled to manage at home. Vitals noted, in general he is awake and alert pleasant no distress. HEENT normocephalic atraumatic mucous membranes moist. Laying more or less flat on his back in bed. No focal neuro deficits. Low back painwhile he does have spinal stenosis/disc disease, currently his presentation seems predominantly that of a biomechanical strain centered on pelvic stabilizer muscles i.e. piriformiscontinue topical diclofenac, Toradol, Valium at bedtime, PT. OMT done yesterday, would likely benefit from ongoing OMT. He does have a nidus for lumbar radiculopathy, and we discussed the possibility of needing LESIbut given that the current situation seems more biomechanical, we agreed it would make sense to take care of the musculoskeletal component first and see how he is feeling before doing more invasive means to manage anything radicular that may not necessarily require management. Pelvic somatic dysfunctionOMT done during hospital stay, likely would benefit from ongoing OMT periodically DVT proph - lovenox Otherwise as above. Subjective 55 year old male with past medical history of generalized anxiety disorder, impaired fasting glucose, and hypercholesterolemia admitted for intractable right lower back pain. I saw this patient at bedside this morning and he said he was feeling better than when he first came in. When I rechecked on the patient at 16:45 he said he was able to walk to the bathroom and stand while micturating alright. Patient still feels anxious about leaving today for the pain and would like to leave tomorrow morning or noon when he is sure of his pain getting better. Review of Systems Musculoskeletal: Pain at leg in certain positions, less so in other positions (like frog leg). Physical Exam Constitutional: WD/WN, vitals as above Eyes: PERRL, conjunctivae normal, anicteric sclerae Respiratory: normal respiratory effort, lungs clear to auscultation Cardiovascular: RRR, no murmur, no edema Musculoskeletal: Patient with tenderness from sacrum to head of femur still but less than the other day when we palpated at the same area. Complains of numb feeling down the back of his leg but says he can still feel me touching the area. Pain today is same location as yesterday, being from the sacrum to the knee on the lateral aspect of his left leg. Skin: no rashes, warm and dry Results & Data Results & Data ([facility]) Vital Signs (Past 12 Hours) Vital Signs Temp Pulse Resp BP Pulse Ox 02/04/21 23:02 36.6 C 74 17 114/73 95 Resident Activity Tracking Resident Involvement: Resident Care Provided Care Provided: Adult Hospital Medicine
--- NOTE | 2021-02-05 09:13 | XRay Report ---
XR chest 1V portable HISTORY: Left anterior rib pain. COMPARISON: 12/16/2020. FINDINGS: The lungs are clear. Cardiac silhouette is normal in size. No pleural effusions. No pneumot horax. IMPRESSION: No acute process. ACT 112: Negative or not required by law. Electronically signed by: Bob Raya M.D. 02/05/2021 9:12 AM
[2021-02-05] MEDS: DICLOFENAC SOD 1% GEL 100 GM TUBE EXT SCH ×4 (09:30→21:27)
[2021-02-05] MEDS: ENOXAPARIN INJ 40 MG/0.4 ML SYR SQ SCH ×2 (09:30→20:29)
--- NOTE | 2021-02-05 16:56 | Billing Data ---
Date of Service February 05, 2021 Coding Level of Care Code 83156 Subseq Obs Care Lvl 3
[2021-02-05] MEDS: KETOROLAC TROMETHAMINE 15 MG/ML VIAL IV SCH ×2 (17:42→22:38)
[2021-02-05] MEDS ORDERED: diazePAM 5 MG TABLET PO SCH (21:00)
[2021-02-06] MEDS: ACETAMINOPHEN 500 MG TAB PO SCH ×2 (06:07→13:48)
[2021-02-06] MEDS: KETOROLAC TROMETHAMINE 15 MG/ML VIAL IV SCH ×2 (06:07→11:20)
[2021-02-06] MEDS: DICLOFENAC SOD 1% GEL 100 GM TUBE EXT SCH ×2 (09:38→13:48)
[2021-02-06] MEDS: ENOXAPARIN INJ 40 MG/0.4 ML SYR SQ SCH ×2 (09:39→09:53)
[2021-02-06] MEDS: LIDOCAINE 5% 1 PATCH TD SCH (09:40)
[2021-02-06] MEDS: HYDROCODONE/ACETAMOPHEN 5/325MG TAB PO PRN (09:49)
--- NOTE | 2021-02-06 13:29 | Discharge Summary ---
Date of Service February 06, 2021 Admission HPI Per Admitting Provider The patient is a 55-year-old male with a past medical history including generalized anxiety disorder dyshidrotic eczema, hypercholesterolemia, lumbar disc herniation with radiculopathy and chronic sinusitis, who presents with symptoms as noted above. He has had several episodes of low back pain in the past, but this is lasted longer, has been more severe, and is accompanied by right lower extremity radiculopathy. The patient did finally get relief in the emergency department after being given morphine sulfate 4 mg IV, then Zofran 4 mg IV, then methylprednisolone-125 mg IV, Toradol 10 mg IV, morphine sulfate 4 mg IV, hydromorphone 1 mg IV and Toradol [address] scan of lumbar spine: No acute fracture or subluxation. Moderate intervertebral disc space narrowing at L5-S1 with severe multilevel facet arthr osis. Multilevel central canal and neuroforaminal Narrowing. The patient is now comfortable enough that an MRI of lumbar spine without contrast is being ordered. He will need to be needed for pain management and further diagnosis Admission Exam Per Admitting Provider The patient is awake, alert and oriented 3, well developed and well nourished, normocephalic and atraumatic, lying in bed and in no acute distress after administration of the above medications HEENT--PERRL, EOMI, mucous membranes and oropharynx normal. Neck--supple. No JVD. No bruits. Thyroid normal, trachea midline, no adenopathy. Heart--normal S1 and S2. No murmurs, rubs or gallops. Lungs--clear bilaterally, no respiratory distress, no accessory muscle use. Abdomen--normal bowel sounds and soft. Nontender. Nondistended. Morbidly obese Extremities--no cyanosis or clubbing. No edema. Dermatologic--normal skin turgor, normal color, no abnormal lymph nodes, no rash. Neurologic--cranial nerves II through XII grossly intact. Rheumatologic--limited exam due to initial presentation in severe pain Psychiatric--normal affect. Principal Diagnosis Piriformis Syndrome with RLE radiculopathy Discharge Exam Constitutional: WD/WN, vitals as above Eyes: PERRL, conjunctivae normal, anicteric sclerae Respiratory: normal respiratory effort, lungs clear to auscultation Cardiovascular: RRR, no murmur, no edema Musculoskeletal: mild tenderness along piriformis, less so than other days. +numbness/tingling on hip flexion and abduction. Skin: no rashes, warm and dry Discharge Data Allergies Allergy/AdvReac Type Severity Reaction Status Date / Time No Known Drug Allergies Allergy NKDA Verified 02/03/21 20:22 Consultations 02/03/21 23:32 ED Decision to Admit Stat Ordered Studies 02/03/21 18:48 CT lumbar spine wo con Stat 02/04/21 08:59 MR lumbar spine wo con Stat Hospital Course (1) Piriformis syndrome of left side: -CT and MRI in ED showed chronic lumbar stenosis with foraminal narrowing. His symptoms in the ED appeared to stem more so from pelvic muscle instability rather than his lumbar stenosis. - Much improvement from when he first came to the ED. Said he has improvement with walking and was able to walk to bathroom and keep two legged stance while micturating. Now can ambulate down hallways with limited time, but still complains of numbness/tingling. - Patient seen by PT who helped him with piriformis stretches and exercises. PT recommended continuing outpatient PT. - Explained to patient the nature of piriformis syndrome/spasm and the benefit of following up outpatient with Dr. Wyman for OMT treatments. - f/u with PCP. Begin PT and consider OMT. Will d/c patient with Valium 5mg for sleep. He can get OTC Voltaren gel and recommendation of ibuprofen 600-800mg TID for no more than 7 days. Can then switch to Tylenol. Total Time Total Time Spent Total Time Spent (In Minutes): 30 Discharge Plan Discharge Items Patient Disposition: Home - Self-Care Reason For Visit: INTRACRABLE LUMBAR PAIN WITH RLE RADICULOPATHY Discharge Diagnosis: Piriformis Syndrome with RLE radiculopathy Activity: Per Instructions section Non-emergency contact: Primary Care Provider Call non-emergency contact if: you have any medication questions, your symptoms worsen and your pain is not controlled Follow-up/Referrals: Albino Gonzáles III, MD [Primary Care Provider] - Diet: Heart Healthy Addtl Attending Provider Instructions: You were admitted into observation for exacerbated low back pain. Imaging found chronic lumbar stenosis and foraminal narrowing. Clinically it seemed as if your exacerbated symptoms stemmed more from pelvic muscle dysfunctions rather than the lumbar stenosis itself. You were seen by PT in the hospital who recommended outpatient PT. We also performed some OMT (osteopathic manipulative treatment) in the hospital and think you would benefit from further treatment with these techniques in the outpatient setting as well. You can speak to your primary care provider to discuss further. We will try these conservative approaches to help with your pain and radicular symptoms. If no improvement despite treatment, can discuss steroid injections in the future. For pain relief, you can take NSAIDs (ie. advil, motrin, aleve) as instructed. Refrain from taking these more than 7 days. After 7 days, you can switch to Tylenol for further relief. You should also get Voltaren gel which is available over the counter. You can apply this over the pain site, this works as a topical NSAID. Pending Studies at Discharge: No Stand-Alone Forms: My [facility] [employer], Work/School Release Medications and DC Order Prescriptions: New diazepam [Valium] 5 mg tablet 5 mg PO HS PRN (Reason: sleep) Qty: 3 RF: 0 Continued diclofenac sodium 75 mg tablet,delayed release (DR/EC) 75 mg PO BID Qty: 60 RF: 0 buspirone 5 mg tablet 5 mg PO BID PRN (Reason: anxiety) Qty: 60 RF: 5 azelastine 137 mcg (0.1 %) aerosol,spray 2 spray INTNAS BID Qty: 30 RF: 11 triamcinolone acetonide 0.1 % cream 1 applic Topical UD PRN (Reason: Rash) RF: 0 naproxen sodium [Aleve] 220 mg Tablet 440 mg PO BID PRN (Reason: Pain) RF: 0 Discharge Orders: Discharge Order (Routine); Ordered 02/06/21 Ordered By: Juan Calzada/Other Patient Handouts: How Your Back Works, Relieving Back Pain, Back Safety: Sleeping Positions Admission Data Admit Date/Time: 02/04/21 01:11 Attending Provider: Triston Xie Admit Provider: Luis Velez Primary Care Provider: Albino Gonzáles III Other Providers: Luis Velez Other Interventions: Discharge Summary Assessment (RN) Last Done: 02/06/21 14:46 Supervising Physician Co-Signing Physician Notes Attending attestation Pt seen and examined in concert with Dr. Asif. In agreement with the documented findings as noted in the resident documentation with any exceptions or additions as noted here. Continued gradual improvement of lower back pain now described as persistent ache with ever increasing periods of activity tolerance following therapy and stretching. Lower extremity paresthesia stable. On examination, S1/S2 nl RRR no MCG. CTAB. Abd NT/ND BS+ve Piriformis syndrome with mechanical LBP - counseling re: duration, severity and expected course of recovery. Encourage continued engagement with PT, PCP, OMM and use of symptom modulating medications as noted. Else see resident documentation as noted. Resident Activity Tracking Resident Involvement: Resident Care Provided Care Provided: Adult [facility]
[2021-02-06] MEDS ORDERED: KETOROLAC TROMETHAMINE 15 MG/ML VIAL IV PRN (18:00)
== END 2021-02-06 16:01 | disposition home or self-care (01) ==
LOC: 3N 18:29 → ED 18:29 → SUATTDRO 02-04 01:11 → 3N 02-04 03:30